=== PATIENT | female | born 1985 | race Caucasian/White ===

== ENCOUNTER 2021-03-09 10:00 | Day surgery (SDC) | payer OTHER ==
[2021-03-09] MEDS ORDERED: Decadron 4 MG INJ IV ONE (10:01)
[2021-03-09] MEDS ORDERED: LIDOCAINE HCL 2% 100 MG/5 ML IJ ONE (10:01)
[2021-03-09] MEDS ORDERED: Ketamine HCl 50 MG/ML ONE (11:29)
[2021-03-09] MEDS ORDERED: DIPRIVAN 200 MG/20 ML IV ONE (11:29)
[2021-03-09] MEDS ORDERED: Lactated Ringers 1,000 ML IV ONE (11:48)
--- NOTE | 2021-03-09 12:25 | XRAY ---
Indication: Left C2-C5 MBB. Intraoperative fluoroscopy provided for 26 seconds. 2 digital spot images submitted for interpretation demonstrates posterior needle tips projecting over the expected left C2-C5 nerve roots. Correlate with intraoperative findings/report. Incidental C5-C6 fusion hardware.
--- NOTE | 2021-03-09 14:15 | XRAY ---
26 seconds fluoroscopy time in surgery for left C2-C5 MBB.
== END 2021-03-09 12:03 | disposition home or self-care (01) ==
LOC: SDC-PAIN 10:00
PROVIDERS: ATTEND Psychiatry & Neurology Pain Medicine
DX: M47.812 Spondylosis without myelopathy or radiculopathy, cervical region (principal); Z79.899 Other long term (current) drug therapy
CPT/HCPCS: 64490; 64491; 64492; 72020; 77002; J1100; J2704

== ENCOUNTER 2021-03-22 11:18 | Day surgery (SDC) | payer OTHER ==
[2021-03-22] MEDS ORDERED: BUPIVACAINE 0.5% VIAL IJ ONE (11:19)
[2021-03-22] MEDS ORDERED: Lactated Ringers 1,000 ML IV ONE (13:07)
[2021-03-22] MEDS ORDERED: DIPRIVAN 200 MG/20 ML IV ONE ×2 (13:34→13:38)
--- NOTE | 2021-03-22 14:23 | XRAY ---
Indication: Left C2-C5 MBB. Intraoperative fluoroscopy provided for 34 seconds. 2 digital spot image submitted for interpretation demonstrates posterior needle tips projecting over the expected left C2-C5 nerve roots. Correlate with intraoperative findings/report. Incidental incompletely visualized lower cervical fusion hardware.
--- NOTE | 2021-03-22 14:28 | XRAY ---
34 seconds fluoroscopy time in surgery for left C2-C5 MBB.
== END 2021-03-22 14:06 | disposition home or self-care (01) ==
LOC: SDC-PAIN 11:18
PROVIDERS: ATTEND Psychiatry & Neurology Pain Medicine
DX: M47.812 Spondylosis without myelopathy or radiculopathy, cervical region (principal); Z79.899 Other long term (current) drug therapy
CPT/HCPCS: 64491; 64492; 64493; 72040; 77002; J2704

== ENCOUNTER 2021-04-12 08:54 | Day surgery (SDC) | payer OTHER ==
[2021-04-12] MEDS ORDERED: Decadron 4 MG INJ IV ONE (08:55)
[2021-04-12] MEDS ORDERED: BUPIVACAINE 0.5% VIAL IJ ONE (08:55)
[2021-04-12] MEDS ORDERED: Xylocaine 1% Vial 30 ML PF IJ ONE (08:55)
[2021-04-12] MEDS ORDERED: DIPRIVAN 200 MG/20 ML IV ONE ×2 (10:35→10:43)
[2021-04-12] MEDS ORDERED: Lactated Ringers 1,000 ML IV ONE (11:00)
--- NOTE | 2021-04-12 11:36 | XRAY ---
Indication: Left C2-C5 RFA. Intraoperative fluoroscopy provided for 48 seconds. 2 digital spot image submitted for interpretation demonstrates posterior needle tips projecting over the expected left C2-C5 nerve roots. Correlate with intraoperative findings/report.
--- NOTE | 2021-04-12 11:43 | XRAY ---
48 seconds of fluoroscopy was used in surgery for a left C2-C5 RFA.
== END 2021-04-12 11:15 | disposition home or self-care (01) ==
LOC: SDC-PAIN 08:54
PROVIDERS: ATTEND Psychiatry & Neurology Pain Medicine
DX: M47.812 Spondylosis without myelopathy or radiculopathy, cervical region (principal); Z79.899 Other long term (current) drug therapy
CPT/HCPCS: 01939; 64633; 64634; 64636; 72040; 77002; J1100; J2001; J2704

== ENCOUNTER 2021-05-24 13:29 | Day surgery (SDC) | payer OTHER ==
[2021-05-24] MEDS ORDERED: Depo-Medrol 40 MG/ML IM ONE (13:30)
[2021-05-24] MEDS ORDERED: BUPIVACAINE 0.5% VIAL IJ ONE (13:30)
[2021-05-24] MEDS ORDERED: Lactated Ringers 1,000 ML IV ONE (15:35)
[2021-05-24] MEDS ORDERED: DIPRIVAN 200 MG/20 ML IV ONE ×2 (16:07→16:18)
--- NOTE | 2021-05-24 19:29 | XRAY ---
Indication: Right 10-12 intercostal injection. Intraoperative fluoroscopy provided for 34 seconds. 4 digital spot image submitted for interpretation demonstrates needle tip lateral to the right lower ribs presumed 10-12 ribs. Correlate with intraoperative findings/report.
--- NOTE | 2021-05-25 09:22 | XRAY ---
34 seconds fluoroscopy time in surgery for right T10-T12 intercostal nerve block.
== END 2021-05-24 16:50 | disposition home or self-care (01) ==
LOC: SDC-PAIN 13:29
PROVIDERS: ATTEND Psychiatry & Neurology Pain Medicine
DX: R07.81 Pleurodynia (principal); Z79.899 Other long term (current) drug therapy
CPT/HCPCS: 64420; 64421; 71100; 77002; J1030; J2704

== ENCOUNTER 2021-08-30 09:03 | Day surgery (SDC) | payer OTHER ==
[2021-08-30] MEDS ORDERED: LIDOCAINE HCL 2% 40 MG/2 ML IJ ONE (09:04)
[2021-08-30] MEDS ORDERED: DIPRIVAN 200 MG/20 ML IV ONE ×2 (10:38→10:49)
--- NOTE | 2021-08-30 11:34 | XRAY ---
Indication: Bilateral L4-S1 MBB. Intraoperative fluoroscopy provided for 25 seconds. Single digital spot image submitted for interpretation demonstrates posterior needle tips projecting over the expected left and right L4-S1 nerve roots. Correlate with intraoperative findings/report.
--- NOTE | 2021-08-30 12:03 | XRAY ---
25 seconds of fluoroscopy was used in surgery for a bilateral L4-S1 MBB.
[2021-08-30] MEDS ORDERED: Lactated Ringers 1,000 ML IV ONE (12:55)
== END 2021-08-30 11:06 | disposition home or self-care (01) ==
LOC: SDC-PAIN 09:03
PROVIDERS: ATTEND Psychiatry & Neurology Pain Medicine
DX: M47.816 Spondylosis without myelopathy or radiculopathy, lumbar region (principal); Z79.899 Other long term (current) drug therapy
CPT/HCPCS: 64493; 64494; 72020; 77002; J2704

== ENCOUNTER 2021-09-20 12:23 | Day surgery (SDC) | payer OTHER ==
[2021-09-20] MEDS ORDERED: Marcaine Mpf 0.5% Vial 30 Ml IJ ONE (12:24)
[2021-09-20] MEDS ORDERED: DIPRIVAN 200 MG/20 ML IV ONE (13:44)
[2021-09-20] MEDS ORDERED: Lactated Ringers 1,000 ML IV ONE (14:29)
--- NOTE | 2021-09-21 18:32 | XRAY ---
12 seconds of fluoroscopy was used in surgery for a bilateral L4-S1 MBB.
--- NOTE | 2021-09-22 21:16 | XRAY ---
Indication: Bilateral L4-S1 MBB. Intraoperative fluoroscopy provided for 12 seconds. Single digital spot image submitted for interpretation demonstrates posterior needle tips projecting over the expected right and left L4-S1 nerve roots. Correlate with intraoperative findings/report.
== END 2021-09-20 14:14 | disposition home or self-care (01) ==
LOC: SDC-PAIN 12:23
PROVIDERS: ATTEND Psychiatry & Neurology Pain Medicine
DX: M47.816 Spondylosis without myelopathy or radiculopathy, lumbar region (principal); Z79.899 Other long term (current) drug therapy
CPT/HCPCS: 64493; 64494; 72020; 77002; J2704

== ENCOUNTER 2021-10-11 13:45 | Day surgery (SDC) | payer OTHER ==
[2021-10-11] MEDS ORDERED: XYLOCAINE-MPF 1% 5ML SDV IJ ONE (13:46)
[2021-10-11] MEDS ORDERED: Marcaine Mpf 0.5% Vial 30 Ml IJ ONE (13:46)
[2021-10-11] MEDS ORDERED: Depo-Medrol 40 MG/ML IM ONE (13:46)
[2021-10-11] MEDS ORDERED: DIPRIVAN 200 MG/20 ML IV ONE ×3 (16:50→17:30)
[2021-10-11] MEDS ORDERED: Lactated Ringers 1,000 ML IV ONE (17:21)
[2021-10-11] MEDS ORDERED: Xylocaine-Mpf 2% 5 Ml Vial ONE (17:25)
--- NOTE | 2021-10-11 19:28 | XRAY ---
Indication: Right L4-S1 RFA. Intraoperative fluoroscopy provided for 30 seconds. 4 digital spot image submitted for interpretation demonstrates posterior needle tips projecting over the expected right L4-S1 nerve roots. Correlate with intraoperative findings/report.
--- NOTE | 2021-10-12 08:28 | XRAY ---
30 seconds of fluoroscopy was used in surgery for a right L4-S1 RFA.
== END 2021-10-11 17:23 | disposition home or self-care (01) ==
LOC: SDC-PAIN 13:45
PROVIDERS: ATTEND Psychiatry & Neurology Pain Medicine
DX: M47.816 Spondylosis without myelopathy or radiculopathy, lumbar region (principal); Z79.899 Other long term (current) drug therapy
CPT/HCPCS: 64635; 64636; 72100; 77002; J1030; J2704

== ENCOUNTER 2021-10-18 09:15 | Day surgery (SDC) | payer OTHER ==
[2021-10-18] MEDS ORDERED: Depo-Medrol 40 MG/ML IM ONE (09:16)
[2021-10-18] MEDS ORDERED: Marcaine Mpf 0.5% Vial 30 Ml IJ ONE (09:16)
[2021-10-18] MEDS ORDERED: XYLOCAINE-MPF 1% 5ML SDV IJ ONE (09:16)
[2021-10-18] MEDS ORDERED: DIPRIVAN 200 MG/20 ML IV ONE (10:28)
[2021-10-18] MEDS ORDERED: Xylocaine-Mpf 2% 5 Ml Vial ONE (10:33)
[2021-10-18] MEDS ORDERED: Lactated Ringers 1,000 ML IV ONE (10:54)
--- NOTE | 2021-10-18 12:07 | XRAY ---
32 seconds fluoroscopy time in surgery for left L4-S1 RFA.
--- NOTE | 2021-10-18 12:17 | XRAY ---
Indication: Left L4-S1 RFA. Intraoperative fluoroscopy provided for 32 seconds. 3 digital spot images submitted for interpretation demonstrates posterior needle tips projecting over the expected left L4-S1 nerve roots. Correlate with intraoperative findings/report.
== END 2021-10-18 10:55 | disposition home or self-care (01) ==
LOC: SDC-PAIN 09:15
PROVIDERS: ATTEND Psychiatry & Neurology Pain Medicine
DX: M47.816 Spondylosis without myelopathy or radiculopathy, lumbar region (principal); Z79.899 Other long term (current) drug therapy
CPT/HCPCS: 64635; 64636; 72100; 77002; J1030; J2704

== ENCOUNTER 2022-05-02 09:30 | Day surgery (SDC) | payer OTHER ==
[2022-05-02] MEDS ORDERED: LIDOCAINE HCL 1% 50 MG/5 ML VL PF IJ ONE (09:31)
[2022-05-02] MEDS ORDERED: BUPIVACAINE 0.5% VIAL IJ ONE (09:31)
[2022-05-02] MEDS ORDERED: Decadron 4 MG INJ IV ONE (09:31)
[2022-05-02] MEDS ORDERED: DIPRIVAN 200 MG/20 ML IV ONE ×2 (11:31→11:43)
[2022-05-02] MEDS ORDERED: Lactated Ringers 1,000 ML IV ONE (13:18)
--- NOTE | 2022-05-02 14:34 | XRAY ---
Indication: Left C2-C5 RFA. Intraoperative fluoroscopy provided for 41 seconds. 8 digital spot image submitted for interpretation demonstrates posterior needle tips projecting over the expected left C2-C5 nerve roots. Correlate with intraoperative findings/report.
--- NOTE | 2022-05-02 14:49 | XRAY ---
41 seconds fluoroscopy time in surgery for left C2-C4 RFA.
== END 2022-05-02 12:15 | disposition home or self-care (01) ==
LOC: SDC-PAIN 09:30
PROVIDERS: ATTEND Psychiatry & Neurology Pain Medicine
DX: M47.812 Spondylosis without myelopathy or radiculopathy, cervical region (principal); Z79.899 Other long term (current) drug therapy
CPT/HCPCS: 64633; 64634; 72040; 77002; J1100; J2001; J2704

== ENCOUNTER 2023-02-20 11:01 | Day surgery (SDC) | payer BC ==
[2023-02-20] MEDS ORDERED: XYLOCAINE-MPF 1% 5ML SDV IJ ONE (11:02)
[2023-02-20] MEDS ORDERED: Depo-Medrol 40 MG/ML IM ONE (11:02)
[2023-02-20] MEDS ORDERED: BUPIVACAINE 0.5% VIAL IJ ONE (11:02)
[2023-02-20] MEDS ORDERED: DIPRIVAN 200 MG/20 ML IV ONE ×2 (13:54→14:11)
[2023-02-20] MEDS ORDERED: Versed 2 MG/2 ML Injection ONE (14:00)
[2023-02-20] MEDS ORDERED: Lactated Ringers 1,000 ML IV ONE (15:05)
--- NOTE | 2023-02-20 20:57 | XRAY ---
Indication: Right L4-S1 RFA. Intraoperative fluoroscopy provided for 27 seconds. 5 digital spot image submitted for interpretation demonstrates posterior needle tip projecting over the expected right L4-S1 nerve roots. Correlate with intraoperative findings/report.
--- NOTE | 2023-02-20 21:43 | XRAY ---
27 seconds of fluoroscopy was used in surgery for a right L4-S1 RFA.
== END 2023-02-20 14:40 | disposition home or self-care (01) ==
LOC: SDC-PAIN 11:01
PROVIDERS: ATTEND Psychiatry & Neurology Pain Medicine
DX: M47.816 Spondylosis without myelopathy or radiculopathy, lumbar region (principal); Z79.899 Other long term (current) drug therapy
CPT/HCPCS: 64635; 64636; 72100; 77002; J1030; J2250; J2704

== ENCOUNTER 2023-02-21 12:09 | Day surgery (SDC) | payer BC ==
[2023-02-21] MEDS ORDERED: Depo-Medrol 40 MG/ML IM ONE (12:10)
[2023-02-21] MEDS ORDERED: BUPIVACAINE 0.5% VIAL IJ ONE (12:10)
[2023-02-21] MEDS ORDERED: XYLOCAINE-MPF 1% 5ML SDV IJ ONE (12:10)
[2023-02-21] MEDS ORDERED: DIPRIVAN 200 MG/20 ML IV ONE ×2 (13:42→13:51)
[2023-02-21] MEDS ORDERED: SUBLIMAZE 250 MCG/5 ML ONE (13:46)
[2023-02-21] MEDS ORDERED: SUBLIMAZE 100 MCG/2 ML ONE (13:47)
--- NOTE | 2023-02-21 14:54 | XRAY ---
Indication: Left L4-S1 RFA. Intraoperative fluoroscopy provided for 26 seconds. 3 digital spot image submitted for interpretation demonstrates posterior needle tips projecting over the expected left L4-S1 nerve roots. Correlate with intraoperative findings/report.
[2023-02-21] MEDS ORDERED: Lactated Ringers 1,000 ML IV ONE (15:26)
--- NOTE | 2023-02-22 11:00 | XRAY ---
26 seconds of fluoroscopy was used in surgery for a left L4-S1 RFA.
== END 2023-02-21 14:18 | disposition home or self-care (01) ==
LOC: SDC-PAIN 12:09
PROVIDERS: ATTEND Psychiatry & Neurology Pain Medicine
DX: M47.817 Spondylosis without myelopathy or radiculopathy, lumbosacral region (principal)
CPT/HCPCS: 64635; 64636; 72100; 77002; J1030; J2704; J3010

== ENCOUNTER 2025-02-10 13:16 | Day surgery (SDC) | payer OTHER ==
[2025-02-10] MEDS ORDERED: LIDOCAINE HCL 1% 50 MG/5 ML VL IJ ONE (13:17)
[2025-02-10] MEDS ORDERED: methylPREDNISolone acetate IM ONE (13:17)
[2025-02-10] MEDS ORDERED: BUPIVACAINE 0.5% VIAL IJ ONE (13:17)
[2025-02-10] MEDS ORDERED: Lactated Ringers 1,000 ML IV ONE (15:49)
[2025-02-10] MEDS ORDERED: propofoL IV ONE ×2 (16:37→16:45)
[2025-02-10] MEDS ORDERED: MORPHINE SULFATE 4 MG INJ ONE (16:56)
--- NOTE | 2025-02-10 18:57 | XRAY ---
Indication: Right L4-S1 RFA. Intraoperative fluoroscopy provided for 27 seconds. 6 digital spot image submitted for interpretation demonstrates posterior needle tips projecting over expected right L4-S1 nerve roots. Correlate with intraoperative findings/report.
--- NOTE | 2025-02-11 12:54 | XRAY ---
27 seconds of fluoroscopy was used in surgery for a right L4-S1 RFA.
== END 2025-02-10 17:20 | disposition home or self-care (01) ==
LOC: SDC-PAIN 13:16
PROVIDERS: ATTEND Psychiatry & Neurology Pain Medicine
DX: M47.817 Spondylosis without myelopathy or radiculopathy, lumbosacral region (principal)

== ENCOUNTER 2025-02-24 11:00 | Day surgery (SDC) | payer OTHER ==
[2025-02-24] MEDS ORDERED: LIDOCAINE HCL 1% 50 MG/5 ML VL IJ ONE (11:01)
[2025-02-24] MEDS ORDERED: methylPREDNISolone acetate IM ONE (11:01)
[2025-02-24] MEDS ORDERED: BUPIVACAINE 0.5% VIAL IJ ONE (11:01)
[2025-02-24] MEDS ORDERED: propofoL IV ONE (15:04)
[2025-02-24] MEDS ORDERED: Xylocaine-Mpf 2% 5 Ml Vial ONE (15:09)
[2025-02-24] MEDS ORDERED: Lactated Ringers 1,000 ML IV ONE (15:46)
--- NOTE | 2025-02-24 16:35 | XRAY ---
Indication: Left L4-S1 RFA. Intraoperative fluoroscopy provided for 14 seconds. 3 digital spot image submitted for interpretation demonstrates posterior needle tips projecting over expected left L4-S1 nerve roots. Correlate with intraoperative findings/report.
--- NOTE | 2025-02-24 17:00 | XRAY ---
14 seconds of fluoroscopy was used in surgery for a left L4-S1 RFA.
== END 2025-02-24 15:38 | disposition home or self-care (01) ==
LOC: SDC-PAIN 11:00
PROVIDERS: ATTEND Psychiatry & Neurology Pain Medicine
DX: M47.817 Spondylosis without myelopathy or radiculopathy, lumbosacral region (principal)